=== PATIENT | female | born 1960 | race Caucasian/White ===

== ENCOUNTER 2023-03-14 18:47 | Outpatient (REF) | payer BC, SELFPAY ==
--- NOTE | ~2023-03-14 | MR_ITS ---
EXAMINATION: MR KNEE WITHOUT CONTRAST, RIGHT CLINICAL INFORMATION: Right knee pain and swelling. Osteoarthritis. Prepatellar bursitis. Ligament tear. COMPARISON: None available. TECHNIQUE: MRI of the knee without contrast was performed using routine sequences on a high-field scanner. FINDINGS: MENISCI: Medial Meniscus: Diffusely attenuated and irregular meniscal body which is medially extruded, consistent with complex tearing. Inner margin fraying/tearing along the anterior horn with oblique inner margin tearing of the posterior horn as well as attenuation and tearing of the posterior root. Lateral Meniscus: Fraying/tearing of the anterior and posterior roots. LIGAMENTS: Cruciate: Intact. Collateral: Intact. EXTENSOR MECHANISM: Intact. ARTICULAR CARTILAGE/BONE: Patellofemoral Compartment: Patellar median ridge and medial patellar facet thinning with areas of full-thickness loss. Diffuse trochlear signal heterogeneity with medial trochlear full-thickness loss. Marginal osteophytes. Medial Compartment: Diffuse, full-thickness weightbearing articular cartilage loss of bony remodeling as well as underlying subchondral cystic change and marrow edema. Prominent marginal osteophytes. Lateral Compartment: Articular cartilage signal heterogeneity and surface irregularity with small marginal osteophytes. JOINT FLUID AND BURSAE: Moderate joint effusion and moderate Gerardo's cyst with mild synovitis. Synovial recess versus ganglion cyst adjacent to the medial gastrocnemius tendon measuring up to 3.6 cm in ML dimension. MR/MR knee RT wo con IMPRESSION: 1. Severe medial compartment osteoarthritis with bony remodeling. Diffuse complex tearing of the medial meniscal body which is medially extruded. Inner margin fraying/tearing of the anterior horn with oblique inner margin tearing of the posterior horn. 2. Fraying/tearing of the lateral meniscus anterior and posterior roots. 3. Moderate patellofemoral and mild lateral compartment osteoarthritis. Moderate joint effusion and moderate Gerardo's cyst with mild synovitis. Synovial recess versus ganglion cyst adjacent to the medial gastrocnemius tendon measuring up to 3.6 cm.
== END 2023-03-14 18:48 | disposition home or self-care (01) ==
LOC: HO.MRI 18:47
PROVIDERS: PCP Internal Medicine; Visit Provider Internal Medicine
DX: M17.11 Unilateral primary osteoarthritis, right knee (principal)
CPT/HCPCS: 73721